=== PATIENT | female | born 1990 | race Hispanic/Latino ===

== ENCOUNTER 2023-08-28 11:03 | Emergency (ER) | payer MEDICAID, SELFPAY ==
[2023-08-28 11:25] VITALS: BP 118/83; PULSE 89; RESP 16; TEMP 36.8; O2SAT 100
--- NOTE | 2023-08-28 12:04 | ED.URI ---
HPI - URI/Sore Throat General Chief Complaint: Upper Respiratory Infection Stated Complaint: throat sore/itchy Time Seen by Provider: 08/28/23 11:55 Source: patient, family, RN notes reviewed and old records reviewed Mode of arrival: ambulatory Limitations: language barrier and other (interpretor service used) History of Present Illness HPI Narrative: 33 year old female accompanied by spouse with new born baby present to express care with complaints of sore throat and mouth for 3 week and some headaches and recent left ear pain. Patient reports that he has not had any cough or any known fevers, chills or body aches. Patient reports that she has taken Tylenol for her symptoms. MD elicited complaint: sore throat and other (left ear pain) Onset (ago): week(s) (throat 3 weeks, headache and left ear pain 1 week) Pain scale (0-10): 6 Able to tolerate fluids by mouth: Yes Treatments prior to arrival: acetaminophen Related Data Home Medications Medication Instructions Recorded Confirmed medroxyprogesterone 150 mg/mL 150 mg IM [id number] 08/28/23 08/28/23 intramuscular syringe Allergies Allergy/AdvReac Type Severity Reaction Status Date / Time No Known Allergies Allergy Verified 08/28/23 11:50 Review of Systems Review of Systems: CONSTITUTIONAL: Denies malaise, chills, sweats, or fever. EYES: Denies visual changes, redness, or discharge. ENT: Reports rhinorrhea, congestion, no sinus pain,left otalgia and sore throat. CARDIOVASCULAR: Denies chest pain, palpitations, or edema. RESPIRATORY: Reports no cough.? Denies dyspnea. GASTROINTESTINAL: Denies abdominal pain, nausea, vomiting, diarrhea SKIN: Denies rash or itching. MUSCULOSKELETAL: Denies myalgia. NEUROLOGIC:Reports headache. All systems reviewed & are unremarkable except as noted in HPI and below PMFSH Social History Social History (Updated 08/29/23 @ 19:34 by Kathy Morel NP) Smoking status: Never smoker Substance use type: does not use Living arrangements: with family Gender identity (if verbalized by the patient): Female Comments At time of signature, agree with nursing past medical, surgical, social and family history. There is no relevant family history pertinent to the presenting complaint Exam Narrative: GENERAL: Well-appearing, well-nourished, and in no acute distress. HEAD: Normocephalic EYES: PERRLA, conjunctivae clear ENT: Nares clear, turbinates edematous and erythematous, clear discharge. Mucous membranes moist.Left TM red,Right TM pearly acuna with dull light reflex; no tragal tenderness. Oropharynx erythematous without lesions. Tonsils not enlarged and without exudate, no drooling, no hoarseness, no trismus, uvula midline.post nasal drainage noted NECK: Supple. No lymphadenopathy CHEST: Clear to auscultation, breath sounds equal. No wheezing, rhonchi, rales, or stridor. No respiratory distress, speaks in full sentences.no cough,SAO2 100% on room air HEART: Regular rate and rhythm. No murmur heard. SKIN: Warm, dry, no rash. NEURO: Alert and oriented x3. PSYCH: Normal mood and affect Course Course Emergency Course: Patient is aware of diagnosis, understands and agrees to treatment plan.? Anticipatory guidance given.? Patient agrees to follow-up as directed and is aware of reasons to seek care at the emergency department. Portions of this record may have been created with voice recognition software Level of Care: Express Care Visit Vital Signs Vital signs: Vital Signs Temperature 36.8 C 08/28/23 11:25 Pulse Rate 89 08/28/23 11:25 Respiratory Rate 16 08/28/23 11:25 Blood Pressure 118/83 08/28/23 11:25 Pulse Oximetry 100 08/28/23 11:25 Oxygen Delivery Room Air 08/28/23 11:25 Temperature 36.8 C 08/28/23 11:25 Pulse Rate 89 08/28/23 11:25 Respiratory Rate 16 08/28/23 11:25 Blood Pressure 118/83 08/28/23 11:25 Pulse Oximetry 100 08/28/23 11:25 Oxygen D
== END 2023-08-28 12:20 | disposition home or self-care (01) ==
PROVIDERS: Emergency Provider Registered Nurse; PCP Physician Assistant
DX: J06.9 Acute upper respiratory infection, unspecified (principal); H65.02 Acute serous otitis media, left ear
CPT/HCPCS: 87081; 87880; 99203; G0463